=== PATIENT | male | born 1965 | race African-American/Black ===

== ENCOUNTER 2018-04-06 11:26 | Day surgery (SDC) | payer OTHER ==
[2018-04-04 11:27] VITALS: BMI 32.7
[2018-04-06] MEDS ORDERED: PROPOFOL 20 ML ONE ×5 (12:43→13:15)
[2018-04-06 14:30] VITALS: BP 142/100; PULSE 72; TEMP 98
--- NOTE | 2018-04-08 09:21 | PATH ---
Surgical Pathology Report Patient Name: JESSICA GONSALVES Med. Rec. #: [id number] /Age/Gender: 1965 (Age: 52) / M Account: [id number] Location: [facility] Taken: 04/06/2018 Received: 04/06/2018 Reported: 04/08/2018 Physicians: Hannah Smith M.D. Specimen(s) Received OBALON BALLOON Clinical History Diarrhea Final Diagnosis OBALON BALLOON/FOREIGN BODY, REMOVAL: FOREIGN BODY MATERIAL. MACROSCOPIC DIAGNOSIS. Electronically Signed Hannah Estes M.D. Gross Description Received fresh labeled "Obalon balloon/foreign body," are 2 dueñas, clear portion of plastic averaging 9.0 cm in greatest dimension. No soft tissue is present. No sections are submitted, gross only. /04/07/2018 saudi04/07/2018
== END 2018-04-06 14:30 | disposition home or self-care (01) ==
LOC: FASU-ENDO 11:26
PROVIDERS: ATTEND Internal Medicine Gastroenterology
PROC: 0DC68ZZ Extirpation of Matter from Stomach, Via Natural or Artificial Opening Endoscopic (ICD-10-PCS; principal; 2018-04-06 13:00)
DX: T18.2XXA Foreign body in stomach, initial encounter (principal); X58.XXXA Exposure to other specified factors, initial encounter; Y93.9 Activity, unspecified; Y92.9 Unspecified place or not applicable
CPT/HCPCS: 88300-TC